=== PATIENT | male | born 1955 | race Hispanic/Latino ===

== ENCOUNTER 2019-03-26 19:00 | Emergency (ER) | payer SELFPAY ==
[~2019-03-26 19:00] MED LIST: ETOMIDATE 20 MG/10 ML INJ IV ONE; LIDOCAINE PF 100 MG/5 ML (CARDIAC SYRINGE) IV ONE; ROCURONIUM 50 MG/5 ML INJ IV ONE
[2019-03-26] MEDS ORDERED: ROCURONIUM 50 MG/5 ML INJ IV ONE (19:01)
[2019-03-26] MEDS ORDERED: ETOMIDATE 20 MG/10 ML INJ IV ONE (19:01)
[2019-03-26] MEDS ORDERED: SODIUM CHLORIDE 0.9% 500 ML 500 ML IV ONE ×2 (19:11→21:15)
[2019-03-26] MEDS ORDERED: MINERAL OIL/PETROLATUM, WHITE OPHTH OINT 3.5 GM OU PRN (19:13)
[2019-03-26] MEDS ORDERED: TETANUS,DIPH,PERTUSS(ACELL) VACCINE 0.5 ML SYRINGE IM ONE (19:13)
[2019-03-26] MEDS ORDERED: fentaNYL 100 MCG/2 ML INJ IV PRN (19:13)
[2019-03-26] MEDS ORDERED: LORazepam 2 MG/ML VIAL IV PRN (19:13)
[2019-03-26] MEDS ORDERED: LIP THERAPY VASELINE TP PRN (19:13)
--- NOTE | 2019-03-26 19:17 | Emergency Department Report ---
ED General Adult HPI - General Chief complaint: Fall Stated complaint: TRAUMA Time Seen by Provider: 03/26/19 19:10 Source: EMS (verbal report received from EMS. EMS documentation not available at time of chart dictation ), RN notes reviewed Mode of arrival: Stretcher Limitations: Altered Mental Status - History of Present Illness Initial comments: This is a 63-year-old male. This patient is not known to this provider previously. The patient is brought to the hospital by emergency medical services with altered mental status. Entire history obtained from EMS, as patient is receiving lbo-twmyk-zrnl ventilation. Patient was reportedly o verdosing on prescription morphine. Intention of overdose is not known. Emergency medical services states that the patient was walking to them, fell, after falling, became unresponsive. They stated that after he fell, and became unresponsive, he was moving 4 extremities. The patient arrives in the emergency room receiving active bib-snfdb-qhcs ventilation, with a GCS of 3. EMS verbally states that patient had no response to Narcan. A code trauma is called overhead. Patient intubated using C-spine immobilization technique. Initially, patient receiving rhc-nedqd-eofu ventilation, and requires intubation. Afterwards, breath sounds clear to auscultation bilaterally. Patient has 2+ pulses in the bilateral upper, lower extremities. GCS remains 3. On exposure, has a number of abrasions, and a right ring finger laceration. Secondary survey demonstrates no penetrating injuries. No additional history is available at this time. -: unknown Radiation: other Quality: other Improves with: other Worsens with: other Associated Symptoms: other - Related Data Allergies Allergy/AdvReac Type Severity Reaction Status Date / Time Unable to Assess Allergy Unverified 03/26/19 19:08 ED Review of Systems ROS: Stated complaint: TRAUMA Other details as noted in HPI Comment: Unobtainable due to pts medical conditions ED Past Medical Hx - Past Medical History Previous Medical History?: Yes Hx of Cancer: Yes (unknown) - Surgical History Additional Surgical History: unable to obtain - Social History Smoking Status: Unknown if ever smoked ED Physical Exam - General Limitations: Altered Mental Status General appearance: obtunded - Head Head exam: Present: atraumatic, normocephalic - Eye Eye exam: Absent: normal appearance (right pupil is large, dilated does not react to light. 4 mm. Appears irregular. Left pupil 3 mm, irregular, does not react to light), nystagmus - ENT ENT exam: Present: normal exam, mucous membranes moist, normal external ear exam - Neck Neck exam: Present: normal inspection. Absent: tenderness, meningismus - Respiratory Respiratory exam: Present: respiratory distress. Absent: wheezes, rales, rhonchi, stridor - Cardiovascular Cardiovascular Exam: Present: normal rhythm, tachycardia, normal heart sounds. Absent: systolic murmur, diastolic murmur, rubs, gallop - GI/Abdominal GI/Abdominal exam: Present: soft, distended. Absent: tenderness, guarding, rebound, rigid, pulsatile mass - Rectal Rectal exam: Present: normal inspection, normal rectal tone. Absent: black stool, bloody stool - exam: Present: normal inspection External exam: Present: normal external exam - Extremities Exam Extremities exam: Present: pedal edema, other (superficial abrasion noted to left elbow, left wrist, bilateral knees. There is no long bony tenderness. The pelvis is stable. Compartments are soft.) - Back Exam Back exam: Present: normal inspection. Absent: tenderness, CVA tenderness (R), CVA tenderness (L), paraspinal tenderness, vertebral tenderness - Neurological Exam Neurological exam: Present: altered, other (patient arrives nonverbal, GCS of 3.) - Psychiatric Psychiatric exam: Present: other (the patient is nonverbal) - Skin Skin exam: Present: warm, abrasion, ecchymosis ED Course Vital Signs 03/26/19 03/26/19 03/26/19 19:00 19:02 19:14 Temperature 98.2 F Pulse Rate 78 114 H 85 Respiratory 19 16 Rate Blood Pressure 144/61 155/83 O2 Sat by Pulse 99 100 100 Oximetry 03/26/19 03/26/19 03/26/19 19:15 19:30 19:45 Temperature Pulse Rate 82 87 92 H Respiratory 13 20 22 Rate Blood Pressure 155/83 155/83 161/81 O2 Sat by Pulse 100 99 97 Oximetry 03/26/19 03/26/19 03/26/19 20:00 20:15 20:30 Temperature Pulse Rate 93 H 94 H 94 H Respiratory 20 20 21 Rate Blood Pressure 156/88 157/88 148/85 O2 Sat by Pulse 98 98 96 Oximetry 03/26/19 03/26/19 03/26/19 20:45 21:18 21:27 Temperature Pulse Rate 96 H 90 Respiratory 20 Rate Blood Pressure 146/83 146/83 107/63 O2 Sat by Pulse 93 99 96 Oximetry 03/26/19 03/26/19 21:30 21:45 Temperature Pulse Rate 94 H 94 H Respiratory 26 H 26 H Rate Blood Pressure 90/56 91/58 O2 Sat by Pulse Oximetry - Reevaluation(s) Reevaluation #1: 03/26/19 20:55 Differential diagnosis, including not limited to: Overdose, intention unspecified/unknown, intracranial injury, cervical spine injury, AAA, intra- abdominal bleeding, aortic injury Assessment and plan: 63-year-old gentleman status post overdose of unknown intent, with respiratory failure, requiring mdz-khiuv-dxsg ventilation by [facility] services, subsequent intubation by myself using C-spine immobilization technique. He is found to have pulsatile abdominal mass on his physical exam, and appears to have physical exam stigmata of either COPD, and/or liver disease. Screening laboratory studies are reviewed and appreciated. X-ray the chest reviewed and appreciated, to my interpretation, it appears to be more consistent with chronic-appearing interstitial disease versus COPD. Do not clinically suspect floridly fluid overloaded at this time. CT scan brain, cervical spine, chest abdomen pelvis pending at this time. Has a small laceration on right index finger which will be repaired by physician camp assistant. Disposition to be determined by results of imaging. 03/26/19 21:04 Given overdose of uncertain intent, patient is placed on 1013 psychiatric hold and a psychiatric consultation will be requested once he is medically stabilized. Reevaluation #2: 03/26/19 21:27 Change in plans. The patient is found to have a large subdural bleed with shift and evidence of herniation. Head of bed will be elevated, patient will be medicated with mannitol for diuresis, he will be loaded with Keppra, and we will also hyperventilate the patient with a goal PA CO2 of 24. This is discussed with nursing team and respiratory therapy. He is found to have thrombocytopenia, elevated INR. He'll be further resuscitated with platelet transfusion, vitamin K, fresh frozen plasma. This patient has an emergent medical condition which cannot be definitively managed at this hospital. We do not have trauma surgery, we do not have neurologic surgery. We contacted [facility], and their trauma surgeon, Dr. Becker, has graciously accepted the patient as a transfer. Hemodynamically suitable for transfer at this time. 03/26/19 23:01 Reevaluation #3: 03/26/19 21:[address] scan findings and the brain, CT scan chest, abdomen pelvis canceled, as it will not change our management, and ATLS recommends emergent transfer for definitive care. Reevaluation #4: 03/26/19 23:01 ct cervical spine shows no fracture - Intubation Time Out Performed: No (emergent) Sedative: Etomidate Mg Given: 20 Paralytic: Rocuronium Mg Given: 100 Laryngoscope: Bakari Size: 4 Assist Device Used: fiberoptic device ET Tube Size: 7.5 Tube Secured Depth (cm): 24 Tube Secured Location: lips Tube Placement Confirmation: equal breath sounds bilat, no breath sounds over epi, confirmation by capnometr Patient Tolerated Procedure: well Intubation Complications: none Additional Comments: Patient placed on nasal cannula 15 m/m. Receives lbi-xovsl-ywqp ventilation. C-spine immobilization is held by additional practitioner. Direct laryngoscopy performed, epiglottis visualized, endotracheal tube inserted, with palpable clicks. Endotracheal tube inserted, and postplacement capnography confirms appropriate tube placement. Video laryngoscopy also performed, and confirms placements in the trachea. The patient tolerated this procedure adequately. ED Medical Decision Making - Lab Data Result diagrams: 03/26/19 19:24 03/26/19 19:24 Vital Signs 03/26/19 03/26/19 19:02 19:14 Pulse Rate 114 H 85 Respiratory 16 Rate Blood Pressure 144/61 155/83 O2 Sat by Pulse 100 100 Oximetry Lab Results 03/26/19 03/26/19 03/26/19 Range/Units 19:24 19:24 19:24 WBC 8.7 (4.5-11.0) K/mm3 RBC 4.00 (3.65-5.03) M/mm3 Hgb 11.8 (11.8-15.2) gm/dl Hct 37.0 (35.5-45.6) % MCV 92 (84-94) fl MCH 30 (28-32) pg MCHC 32 (32-34) % RDW 23.9 H (13.2-15.2) % Plt Count 53 L (140-440) K/mm3 Catron % (Auto) Acid Mixer Add Manual Diff Complete Total Counted 100 Seg Neuts % (Manual) 79.0 H (40.0-70.0) % Band Neutrophils % 0 % Lymphocytes % (Manual) 6.0 L (13.4-35.0) % Reactive Lymphs % (Man) 0 % Monocytes % (Manual) 14.0 H (0.0-7.3) % Eosinophils % (Manual) 0 (0.0-4.3) % Basophils % (Manual) 0 (0.0-1.8) % Metamyelocytes % 0 % Myelocytes % 1.0 % Promyelocytes % 0 % Blast Cells % 0 % Nucleated RBC % Not Reportable Seg Neutrophils # Man 6.9 (1.8-7.7) K/mm3 Band Neutrophils # 0.0 K/mm3 Lymphocytes # (Manual) 0.5 L (1.2-5.4) K/mm3 Abs React Lymphs (Man) 0.0 K/mm3 Monocytes # (Manual) 1.2 H (0.0-0.8) K/mm3 Eosinophils # (Manual) 0.0 (0.0-0.4) K/mm3 Basophils # (Manual) 0.0 (0.0-0.1) K/mm3 Metamyelocytes # 0.0 K/mm3 Myelocytes # 0.1 K/mm3 Promyelocytes # 0.0 K/mm3 Blast Cells # 0.0 K/mm3 WBC Morphology Not Reportable Hypersegmented Neuts Not Reportable Hyposegmented Neuts Not Reportable Hypogranular Neuts Not Reportable Smudge Cells Not Reportable Toxic Granulation Not Reportable Toxic Vacuolation Not Reportable Dohle Bodies Not Reportable Pelger-Huet Anomaly Not Reportable Kirby Rods Not Reportable Platelet Estimate Appears decreased Clumped Platelets Not Reportable Plt Clumps, EDTA Not Reportable Large Platelets Few Giant Platelets Not Reportable Platelet Satelliting Not Reportable Plt Morphology Comment Not Reportable RBC Morphology Not Reportable Dimorphic RBCs Not Reportable Polychromasia Not Reportable Hypochromasia Not Reportable Poikilocytosis Not Reportable Anisocytosis 1+ Microcytosis Not Reportable Macrocytosis Not Reportable Spherocytes Not Reportable Pappenheimer Bodies Not Reportable Sickle Cells Not Reportable Target Cells Not Reportable Tear Drop Cells Few Ovalocytes Not Reportable Helmet Cells Not Reportable [place] Bodies Not Reportable [place] Rings Not Reportable Slaughters Cells Not Reportable Bite Cells Not Reportable Crenated Cell Not Reportable Elliptocytes Not Reportable Acanthocytes (Spur) Not Reportable Rouleaux Not Reportable Hemoglobin C Crystals Not Reportable Schistocytes Not Reportable Malaria parasites Not Reportable Gabriele Bodies Not Reportable Hem Pathologist Commnt No PT 16.1 H (12.2-14.9) Sec. INR 1.31 H (0.87-1.13) APTT 45.1 H (24.2-36.6) Sec. POC ABG pH (7.35-7.45) POC ABG pCO2 (35-45) POC ABG pO2 (80-105) POC ABG HCO3 (22-26 mml/L) POC ABG Total CO2 (23-27mmol/L) POC ABG O2 Sat POC ABG Base Excess ((-2) - (+3)mmol/L) FiO2 % Sodium 136 L (137-145) mmol/L Potassium 3.2 L (3.6-5.0) mmol/L Chloride 99.5 (98-107) mmol/L Carbon Dioxide 23 (22-30) mmol/L Anion Gap 17 mmol/L BUN 11 (9-20) mg/dL Creatinine 0.5 L (0.8-1.5) mg/dL Estimated GFR > 60 ml/min BUN/Creatinine Ratio 22 % Glucose 183 H (75-100) mg/dL Calcium 8.2 L (8.4-10.2) mg/dL Total Bilirubin 0.90 (0.1-1.2) mg/dL AST 22 (5-40) units/L ALT 10 (7-56) units/L Alkaline Phosphatase 98 (35-129) units/L Ammonia (25-60) umol/L Total Creatine Kinase 37 L (55-170) units/L Total Protein 6.6 (6.3-8.2) g/dL Albumin 3.7 L (3.9-5) g/dL Albumin/Globulin Ratio 1.3 % Salicylates (2.8-20.0) mg/dL Acetaminophen (10.0-30.0) ug/mL Plasma/Serum Alcohol (0-0.07) % 03/26/19 03/26/19 03/26/19 Range/Units 19:24 19:24 19:24 WBC (4.5-11.0) K/mm3 RBC (3.65-5.03) M/mm3 Hgb (11.8-15.2) gm/dl Hct (35.5-45.6) % MCV (84-94) fl MCH (28-32) pg MCHC (32-34) % RDW (13.2-15.2) % Plt Count (140-440) K/mm3 Catron % (Auto) Add Manual Diff Total Counted Seg Neuts % (Manual) (40.0-70.0) % Band Neutrophils % % Lymphocytes % (Manual) (13.4-35.0) % Reactive Lymphs % (Man) % Monocytes % (Manual) (0.0-7.3) % Eosinophils % (Manual) (0.0-4.3) % Basophils % (Manual) (0.0-1.8) % Metamyelocytes % % Myelocytes % % Promyelocytes % % Blast Cells % % Nucleated RBC % Seg Neutrophils # Man (1.8-7.7) K/mm3 Band Neutrophils # K/mm3 Lymphocytes # (Manual) (1.2-5.4) K/mm3 Abs React Lymphs (Man) K/mm3 Monocytes # (Manual) (0.0-0.8) K/mm3 Eosinophils # (Manual) (0.0-0.4) K/mm3 Basophils # (Manual) (0.0-0.1) K/mm3 Metamyelocytes # K/mm3 Myelocytes # K/mm3 Promyelocytes # K/mm3 Blast Cells # K/mm3 WBC Morphology Hypersegmented Neuts Hyposegmented Neuts Hypogranular Neuts Smudge Cells Toxic Granulation Toxic Vacuolation Dohle Bodies Pelger-Huet Anomaly Kirby Rods Platelet Estimate Clumped Platelets Plt Clumps, EDTA Large Platelets Giant Platelets Platelet Satelliting Plt Morphology Comment RBC Morphology Dimorphic RBCs Polychromasia Hypochromasia Poikilocytosis Anisocytosis Microcytosis Macrocytosis Spherocytes Pappenheimer Bodies Sickle Cells Target Cells Tear Drop Cells Ovalocytes Helmet Cells [place] Bodies [place] Rings Slaughters Cells Bite Cells Crenated Cell Elliptocytes Acanthocytes (Spur) Rouleaux Hemoglobin C Crystals Schistocytes Malaria parasites Gabriele Bodies Hem Pathologist Commnt PT (12.2-14.9) Sec. INR (0.87-1.13) APTT (24.2-36.6) Sec. POC ABG pH (7.35-7.45) POC ABG pCO2 (35-45) POC ABG pO2 (80-105) POC ABG HCO3 (22-26 mml/L) POC ABG Total CO2 (23-27mmol/L) POC ABG O2 Sat POC ABG Base Excess ((-2) - (+3)mmol/L) FiO2 % Sodium (137-145) mmol/L Potassium (3.6-5.0) mmol/L Chloride (98-107) mmol/L Carbon Dioxide (22-30) mmol/L Anion Gap mmol/L BUN (9-20) mg/dL Creatinine (0.8-1.5) mg/dL Estimated GFR ml/min BUN/Creatinine Ratio % Glucose (75-100) mg/dL Calcium (8.4-10.2) mg/dL Total Bilirubin (0.1-1.2) mg/dL AST (5-40) units/L ALT (7-56) units/L Alkaline Phosphatase (35-129) units/L Ammonia 49.0 (25-60) umol/L Total Creatine Kinase (55-170) units/L Total Protein (6.3-8.2) g/dL Albumin (3.9-5) g/dL Albumin/Globulin Ratio % Salicylates < 0.3 L (2.8-20.0) mg/dL Acetaminophen (10.0-30.0) ug/mL Plasma/Serum Alcohol < 0.01 (0-0.07) % 03/26/19 03/26/19 Range/Units 19:24 20:34 WBC (4.5-11.0) K/mm3 RBC (3.65-5.03) M/mm3 Hgb (11.8-15.2) gm/dl Hct (35.5-45.6) % MCV (84-94) fl MCH (28-32) pg MCHC (32-34) % RDW (13.2-15.2) % Plt Count (140-440) K/mm3 Catron % (Auto) Add Manual Diff Total Counted Seg Neuts % (Manual) (40.0-70.0) % Band Neutrophils % % Lymphocytes % (Manual) (13.4-35.0) % Reactive Lymphs % (Man) % Monocytes % (Manual) (0.0-7.3) % Eosinophils % (Manual) (0.0-4.3) % Basophils % (Manual) (0.0-1.8) % Metamyelocytes % % Myelocytes % % Promyelocytes % % Blast Cells % % Nucleated RBC % Seg Neutrophils # Man (1.8-7.7) K/mm3 Band Neutrophils # K/mm3 Lymphocytes # (Manual) (1.2-5.4) K/mm3 Abs React Lymphs (Man) K/mm3 Monocytes # (Manual) (0.0-0.8) K/mm3 Eosinophils # (Manual) (0.0-0.4) K/mm3 Basophils # (Manual) (0.0-0.1) K/mm3 Metamyelocytes # K/mm3 Myelocytes # K/mm3 Promyelocytes # K/mm3 Blast Cells # K/mm3 WBC Morphology Hypersegmented Neuts Hyposegmented Neuts Hypogranular Neuts Smudge Cells Toxic Granulation Toxic Vacuolation Dohle Bodies Pelger-Huet Anomaly Kirby Rods Platelet Estimate Clumped Platelets Plt Clumps, EDTA Large Platelets Giant Platelets Platelet Satelliting Plt Morphology Comment RBC Morphology Dimorphic RBCs Polychromasia Hypochromasia Poikilocytosis Anisocytosis Microcytosis Macrocytosis Spherocytes Pappenheimer Bodies Sickle Cells Target Cells Tear Drop Cells Ovalocytes Helmet Cells [place] Bodies [place] Rings [place] Cells Bite Cells Crenated Cell Elliptocytes Acanthocytes (Spur) Rouleaux Hemoglobin C Crystals Schistocytes Malaria parasites Gabriele Bodies Hem Pathologist Commnt PT (12.2-14.9) Sec. INR (0.87-1.13) APTT (24.2-36.6) Sec. POC ABG pH 7.282 L (7.35-7.45) POC ABG pCO2 56.9 H (35-45) POC ABG pO2 111 H (80-105) POC ABG HCO3 26.8 (22-26 mml/L) POC ABG Total CO2 29 (23-27mmol/L) POC ABG O2 Sat 98 POC ABG Base Excess 0 ((-2) - (+3)mmol/L) FiO2 60 % Sodium (137-145) mmol/L Potassium (3.6-5.0) mmol/L Chloride (98-107) mmol/L Carbon Dioxide (22-30) mmol/L Anion Gap mmol/L BUN (9-20) mg/dL Creatinine (0.8-1.5) mg/dL Estimated GFR ml/min BUN/Creatinine Ratio % Glucose (75-100) mg/dL Calcium (8.4-10.2) mg/dL Total Bilirubin (0.1-1.2) mg/dL AST (5-40) units/L ALT (7-56) units/L Alkaline Phosphatase (35-129) units/L Ammonia (25-60) umol/L Total Creatine Kinase (55-170) units/L Total Protein (6.3-8.2) g/dL Albumin (3.9-5) g/dL Albumin/Globulin Ratio % Salicylates (2.8-20.0) mg/dL Acetaminophen < 5.0 L (10.0-30.0) ug/mL Plasma/Serum Alcohol (0-0.07) % - EKG Data -: EKG Interpreted by Me EKG shows normal: sinus rhythm Rate: normal - EKG Data When compared to previous EKG there are: previous EKG unavailable 03/26/19 20:50 There is no prior EKG available for comparison. The EKG shows a sinus rhythm, 95 bpm, premature ventricular contraction, rightward axis deviation, QTC within normal limits, the EKG is abnormal, there is no prior for comparison, the EKG is not consistent with ST elevation myocardial infarction. - Radiology Data Radiology results: report reviewed, image reviewed interpreted by me: X-ray of the pelvis shows no acute disease. DJD noted, film is rotated, right- sided evidence of hip hardware is noted. X-ray of the bilateral knees, left elbow, left wrist show no obvious fracture or dislocation. Print Report Referring Physician: VANNESSA GREY Patient Name: PARAMJIT RODRIGUEZ Date of : 1955 Sex: Male Report Date: 2019-03-26 Report Status: Finalized Findings [facility] [address] [place] [address] XRay Report Signed Patient: PARAMJIT RODRIGUEZ MR#: [id number] : 1955 Acct:[id number] Age/Sex: 63 / M ADM Date: 03/26/19 Loc: ED Attending Dr: Ordering Physician: VANNESSA GREY MD Date of Service: 03/26/19 Procedure(s): XR chest 1V ap Accession Number(s): [id number] cc: VANNESSA GREY MD Fluoro Time In Minutes: CHEST 1 VIEW INDICATION / CLINICAL INFORMATION: resp failure, trauma. COMPARISON: None available. FINDINGS: SUPPORT DEVICES: Endotracheal tube tip is approximately 3 cm above the farzana. HEART / MEDIASTINUM: No significant abnormality. LUNGS / PLEURA: There is diffuse interstitial disease in the lungs likely representing pulmonary edema.. No pneumothorax. ADDITIONAL FINDINGS: No significant additional findings. IMPRESSION: 1. There is diffuse interstitial disease in the lungs likely representing edema. No pneumothorax is seen. Signer Name: Ronan Bailey MD Signed: 03/26/2019 7:35 PM Workstation Name: [id number] Transcribed By: SS Dictated By: Ronan Bailey MD Electronically Authenticated By: Ronan Bailey MD Signed Date/Time: 03/26/191934 Print Report Referring Physician: VANNESSA GREY Patient Name: PARAMJIT RODRIGUEZ Date of : 1955 Sex: Male Report Date: 2019-03-26 Report Status: Finalized Findings [address] [address] Cat Scan Report Signed Patient: PARAMJIT RODRIGUEZ MR#: [id number] : 1955 Acct:[id number] Age/Sex: 63 / M ADM Date: 03/26/19 Loc: ED Attending Dr: Ordering Physician: VANNESSA GREY MD Date of Service: 03/26/19 Procedure(s): CT head/brain wo con Accession Number(s): [id number] cc: VANNESSA GREY MD CT head/brain wo con INDICATION / CLINICAL INFORMATION: 63 years Male; Trauma. TECHNIQUE: Thin cut axial images obtained to the brain. Sagittal and coronal reconstructions performed. All CT scans at this location are performed using CT dose reduction for ALARA by means of automated exposure control. COMPARISON: None available. FINDINGS: Large subdural hematoma seen on the right with 2.2 cm of right, measuring 2.2 cm in maximum thickness. There is significant mass effect on the right cerebral hemisphere and significant right to left midline shift. The right lateral ventricle is largely obtained based and there is entrapment of the left lateral ventricle. Of further concern, there is loss of moreland/white differentiation in large portions of the right cerebral hemisphere. Findings are concerning for uncal herniation, as the suprasellar cistern is largely effaced. There may be some component of edema in the right parietal lobe, which almost has a vasogenic type pattern, which might suggest an underlying lesion. The possibility of a branch infarct cannot be excluded as well. There are findings concerning for a pontine hemorrhage which appears to be fairly prominent in size, as well. There may be extension of blood products into the fourth ventricle. This area is difficult to visualize because of artifact from skull base structures. Mild mucosal thickening seen in the ethmoids. Patient is intubated. IMPRESSION: 1. Large subdural collection on the right with right to left midline shift. 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 2. 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 3. Entrapment of the left lateral ventricle noted. This a positive critical value. This exam was completed at 8:14 PM on 03/26/2019. Dr. Grey was notified at 8:29 PM and the exam was initially reviewed at 8:25 PM. Signer Name: Nikhil Carballo MD, III Signed: 03/26/2019 9:34 PM Workstation Name: [id number] Transcribed By: HR Dictated By: Nikhil Carballo MD Electronically Authenticated By: Nikhil Carballo MD Signed Date/Time: 03/26/19 8383 Critical Care Time: Yes Critical care time in (mins) excluding proc time.: 120 Critical care attestation.: If time is entered above; I have spent that time in minutes in the direct care of this critically ill patient, excluding procedure time. ED Disposition Clinical Impression: Traumatic subdural hematoma, Acute respiratory failure Disposition: [id number] SHRT-TRM GEN HOSP IP Is pt being admited?: No Does the pt Need Aspirin: No Condition: Critical Referrals: PRIMARY CARE, [Primary Care Provider] - 3-5 Days
--- NOTE | 2019-03-26 19:39 | XRay Report ---
CHEST 1 VIEW INDICATION / CLINICAL INFORMATION: resp failure, trauma. COMPARISON: None available. FINDINGS: SUPPORT DEVICES: Endotracheal tube tip is approximately 3 cm above the farzana. HEART / MEDIASTINUM: No significant abnormality. LUNGS / PLEURA: There is diffuse interstitial disease in the lungs likely representing pulmonary kristina a.. No pneumothorax. ADDITIONAL FINDINGS: No significant additional findings. IMPRESSION: 1. There is diffuse interstitial disease in the lungs likely representing edema. No pneumothorax is s een. Signer Name: Ronan Bailey MD Signed: 03/26/2019 7:35 PM Workstation Name: [id number]
[2019-03-26 19:53] LABS: Hemoglobin 11.8 gm/dl (11.8-15.2); Mean Corpuscular HGB Conc 32 % (32-34); Mean Corpuscular Volume 92 fl (84-94)
[2019-03-26 19:54] LABS: Red Cell Distribution Width 23.9 % (13.2-15.2)
[2019-03-26 19:59] LABS: Alanine Aminotransferase 10 units/L (7-56); Albumin 3.7 g/dL (3.9-5); BUN/Creatinine Ratio 22; Blood Urea Nitrogen 11 mg/dL (9-20); Calcium 8.2 mg/dL (8.4-10.2); Hemolysis Index 13
[2019-03-26] MEDS ORDERED: fentaNYL DRIP Premix 2,000 MCG/100 ML BAG IV SCH (20:00)
[2019-03-26] MEDS ORDERED: LORazepam 100 MG in SODIUM CHLORIDE 0.9% 50 ML, EMPTY BAG 0 ML IV SCH (20:00)
[2019-03-26 20:02] LABS: INR 1.31 (0.87-1.13)
[2019-03-26 20:04] LABS: Partial Thromboplastin Time 45.1 Sec. (24.2-36.6)
[2019-03-26 20:30] LABS: Basophils % (Manual) 0 % (0.0-1.8); Eosinophils % (Manual) 0 % (0.0-4.3); Myelocytes # (Manual) 0.1 K/mm3; Total Cells Counted 100
[2019-03-26 20:31] LABS: Platelet Estimate Appears Decreased
[2019-03-26 20:32] LABS: Anisocytosis 1+; Large Platelets Few; Tear Drop Cells Few
[2019-03-26 20:33] LABS: Platelet Count 53 K/mm3 (140-440)
--- NOTE | 2019-03-26 20:59 | XRay Report ---
RIGHT KNEE 4 VIEWS INDICATION / CLINICAL INFORMATION: fall knee abrasion COMPARISON: None available. FINDINGS: BONES / JOINT(S): No acute fracture or subluxation. There is mild narrowing of the medial compartment . SOFT TISSUES: No significant abnormality. ADDITIONAL FINDINGS: There is focal irregular sclerotic change in the distal femoral metaphysis likel y representing bone infarct. Signer Name: Ronan Bailey MD Signed: 03/26/2019 8:55 PM Workstation Name: [id number]
[2019-03-26] MEDS ORDERED: POTASSIUM CHLORIDE 10 MEQ 10 MEQ/100 ML BAG IV SCH (21:00)
--- NOTE | 2019-03-26 21:03 | XRay Report ---
XR PELVIS ONE VIEW INDICATION / CLINICAL INFORMATION: Trauma COMPARISON: None available. FINDINGS: BONES / JOINT(S): No acute displaced fracture or subluxation. Prior internal fixation across the righ t acetabulum without evidence for hardware loosening or failure. Mild degenerative change of the righ t hip. SOFT TISSUES: Soft tissue swelling is noted overlying the left hip. ADDITIONAL FINDINGS: None. Signer Name: Haritha Wolfe MD Signed: 03/26/2019 8:59 PM Workstation Name: [id number]
--- NOTE | 2019-03-26 21:14 | XRay Report ---
XR LEFT WRIST 2 VIEWS, XR LEFT ELBOW 2 VIEWS INDICATION / CLINICAL INFORMATION: fall wrist abrasion COMPARISON: None available. FINDINGS: WRIST: No acute displaced fracture or dislocation. Mild degenerative change of the wrist. Mild soft t issue swelling about the wrist. Vascular calcifications are noted. An IV is in place along the radial aspect of the distal forearm. ELBOW: No acute displaced fracture or dislocation. No significant soft tissue abnormality. Signer Name: Haritha Wolfe MD Signed: 03/26/2019 9:10 PM Workstation Name: [id number]
[2019-03-26] MEDS ORDERED: PHYTONADIONE(ADULT ONLY) 10 MG in SODIUM CHLORIDE 0.9% 50 ML IV ONE (21:15)
[2019-03-26] MEDS ORDERED: levETIRAcetam 1000 MG/NS 0.75% 1,000 MG/100 ML BAG IV ONE (21:23)
[2019-03-26] MEDS ORDERED: MANNITOL 20% 500 ML IV ONE (21:23)
[2019-03-26] MEDS ORDERED: MANNITOL IV ONE (21:30)
--- NOTE | 2019-03-26 21:38 | Cat Scan Report ---
CT head/brain wo con INDICATION / CLINICAL INFORMATION: 63 years Male; Trauma. TECHNIQUE: Thin cut axial images obtained to the brain. Sagittal and coronal reconstructions performed. All CT s cans at this location are performed using CT dose reduction for ALARA by means of automated exposure control. COMPARISON: None available. FINDINGS: Large subdural hematoma seen on the right with 2.2 cm of right, measuring 2.2 cm in maximum thickness . There is significant mass effect on the right cerebral hemisphere and significant right to left midli ne shift. The right lateral ventricle is largely obtained based and there is entrapment of the left l ateral ventricle. Of further concern, there is loss of moreland/white differentiation in large portions of the right cerebr al hemisphere. Findings are concerning for uncal herniation, as the suprasellar cistern is largely ef faced. There may be some component of edema in the right parietal lobe, which almost has a vasogenic type pa ttern, which might suggest an underlying lesion. The possibility of a branch infarct cannot be exclud ed as well. There are findings concerning for a pontine hemorrhage which appears to be fairly prominent in size, as well. There may be extension of blood products into the fourth ventricle. This area is difficult t o visualize because of artifact from skull base structures. Mild mucosal thickening seen in the ethmoids. Patient is intubated. IMPRESSION: 1. Large subdural collection on the right with right to left midline shift. 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 2. 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 3. Entrapment of the left lateral ventricle noted. This a positive critical value. This exam was completed at 8:14 PM on 03/26/2019. Dr. Grey was no tified at 8:29 PM and the exam was initially reviewed at 8:25 PM. Signer Name: Nikhil Carballo MD, III Signed: 03/26/2019 9:34 PM Workstation Name: [email or web address]
[2019-03-26 21:51] VITALS: BP 91/58
--- NOTE | 2019-03-26 22:04 | Cat Scan Report ---
CT cervical spine wo con INDICATION / CLINICAL INFORMATION: 63 years Male; Trauma. TECHNIQUE: Axial CT images of the cervical spine were obtained. Sagittal and coronal reformatted images were pr oduced. All CT scans at this location are performed using CT dose reduction for ALARA by means of aut omated exposure control. COMPARISON: None available. FINDINGS: POST-SURGICAL CHANGES: None. ALIGNMENT: Normal cervical lordosis seen without significant scoliosis. VERTEBRAE: No signs of fracture. Vertebral bodies are grossly normal in height throughout. There is osseous foraminal narrowing on the right at C3-4, C4-5, C5-6, C6-7 from uncinate hypertrophy . Similar findings seen on the left at the same levels. Most marked findings appear to be at C4-5. INTRAVERTEBRAL DISCS:Significant, multilevel disc space narrowing noted, with associated Modic type I II endplate changes. Mild disc disease seen at various levels. No definitive signs of prominent disc herniation seen. No s ignificant canal stenosis appreciated. PARASPINAL SOFT TISSUES: No significant abnormality. ADDITIONAL FINDINGS: Patient is intubated. Marked emphysematous changes seen along apices. IMPRESSION: 1. No signs of acute bony trauma to the cervical spine. Signer Name: Nikhil Carballo MD, III Signed: 03/26/2019 10:00 PM Workstation Name: [id number]
== END 2019-03-26 22:10 | disposition short-term general hospital (02) ==
LOC: EDBD → ED 19:00
DX: S06.5X9A Traumatic subdural hemorrhage with loss of consciousness of unspecified duration, initial encounter (principal); J96.00 Acute respiratory failure, unspecified whether with hypoxia or hypercapnia; Z98.890 Other specified postprocedural states; W19.XXXA Unspecified fall, initial encounter; Y93.89 Activity, other specified; Y92.89 Other specified places as the place of occurrence of the external cause; Y99.8 Other external cause status
CPT/HCPCS: 31500; 36415; 70450; 71045; 72125; 72170; 73070; 73100; 73560; 80053; 82140; 82550; 82803; 85007; 85025; 85610; 85730; 86900; 86901; 93005; 93010; 96365; 96375; 99291; 99292; J1953; J2001; J2150; J3430; 36430; 80320; 94002; G0480; J3010